=== PATIENT | male | born 1960 | race Caucasian/White ===

== ENCOUNTER 2025-01-24 19:40 | Emergency (ER) | payer BC, SELFPAY ==
[2025-01-24 19:47] VITALS: BP 165/91
[2025-01-24 20:04] LABS: % Eosinophils 6.6 % (0-6); % Immature Granulocytes 0.4 % (0-0.5); % Lymphocytes 16.7 % (20.5-51.1); % Monocytes 6.3 % (1.7-9.3); Absolute Basophils 0.1 10^3/uL (0-0.2); Absolute Eosinophils 0.7 10^3/uL (0-0.7); Absolute Lymphocytes 1.8 10^3/uL (1.2-3.4); Absolute Monocytes 0.7 10^3/uL (0.1-0.6); Absolute Neutrophils 7.4 10^3/uL (1.4-6.5); Hematocrit 41.5 % (39.0-52.0); Hemoglobin 14.1 g/dL (13.0-18.0); Mean Corpuscular Hgb 28.7 pg (27.0-31.0); Mean Corpuscular Volume 84.5 fL (80.0-94.0); Mean Platelet Volume 10.2 fL (7.4-10.4); Nucleated Red Blood Cells % 0 % (-); Platelet Count 175 10^3/uL (130-400); Red Blood Cell Count 4.91 10^6/uL (4.70-6.10); Red Cell Dist. Width 13.3 % (11.5-14.5); White Blood Cell Count 10.8 10^3/uL (4.8-10.8)
[2025-01-24 20:15] LABS: ALT (SGPT) 25 U/L (0-50); AST (SGOT) 31 U/L (17-59); Albumin 4.7 g/dl (3.5-5.0); Alkaline Phosphatase 59 U/L (38-126); Blood Urea Nitrogen 25 mg/dl (9-20); Calcium 10.4 mg/dl (8.4-10.2); Carbon Dioxide 26 mmol/L (22-30); Chloride 101 mmol/L (98-107); Glucose 120 mg/dl (70-99); Potassium 4.1 mmol/L (3.5-5.1); Sodium 137 mmol/L (135-145); Total Bilirubin 0.7 mg/dl (0.2-1.3); eGFR > 60.00
[2025-01-24 22:55] VITALS: BMI 28.7
[2025-01-24 23:01] VITALS: BP 150/77
[2025-01-25 00:01] LABS: Urine Albumin 1+ (Neg - Trace); Urine Bilirubin Negative (Negative); Urine Character Slightly Cloudy (Clear); Urine Color Yellow; Urine Glucose Negative (Negative); Urine Ketone Negative (Negative); Urine Leukocyte 1+ (Negative); Urine Nitrite Negative (Negative); Urine Occult Blood 4+ (Negative); Urine Urobilinogen Negative (Neg - 1+)
[2025-01-25 00:16] LABS: Urine Amorphous Seen; Urine Calcium Oxalate Crystals Seen; Urine Mucus Moderate; Urine Red Blood Cell >100 /HPF (0-2); Urine Squamous Cell >30 /LPF (Few)
[2025-01-25 00:17] LABS: Urine Bacteria Many (Negative)
--- NOTE | 2025-01-25 01:31 | ED.GENMED ---
History of Present Illness
General
Chief Complaint: Flank Pain
Source: patient and family
Exam Limitations: none
Time Seen by Provider: 01/24/25 23:38
Nursing documentation reviewed up to this point in time: agreed with
History of Present Illness
History of Present Illness:
Pleasant 65-year-old male presents to the emergency department with left-sided flank pain. He does have a history of kidney stones and states that this is similar but reports that the pain is in the lower abdomen. Denies fever, chills, nausea or
vomiting. Reports no chest pain or shortness of breath.
Past History
Past History
ED Past Medical History: GERD, Other (Kidney stones) and Other (Gout)
ED Past Surgical History: Other (Inguinal hernia)
Social History
Tobacco: Non-smoker
Alcohol: None
Drug: None
Personal:
Living: with family
Review of Systems
Review of Systems
Allergies reviewed?: Yes
All Other Systems: ROS reviewed and negative except as documented in HPI and ROS
Constitutional: Reports no symptoms
EENT: Reports no symptoms
Respiratory: Reports no symptoms
Cardiac: Reports no symptoms
ABD/GI: Reports abdominal pain
: Reports flank pain
Musculoskeletal: Reports no symptoms
Skin: Reports no symptoms
Neurological: Reports no symptoms
Endocrine: Reports no symptoms
Hematologic/Lymphatic: Reports no symptoms
Psychiatric: Reports anxiety
Phy Exam
General Physical Exam
General Presentation: well appearing and moderate distress
General Skin: warm and dry
General Habitus: normal
General Mental: alert
General Hydration: appears well hydrated
ENT Exam
ENT Exam: EOMI, pharynx normal, neck supple and normocephalic
Eye Exam
Eye Exam: PERRL, cornea clear and conjunctiva normal
Cardiovascular Exam
Cardiovascular Exam: regular rate/rhythm and no edema
Pulmonary Exam
Pulmonary Exam: lungs clear, no respiratory distress, no rales, no crackles, no rhonchi, no stridor, no wheezing and no cough
Gastrointestinal Exam
Gastrointestinal Exam: normal bowel sounds, non tender, soft, no organomegaly, no pulsatile mass and non distended
Neurological Exam
Neurological Exam: alert and oriented x3
Musculoskeletal Exam
Musculoskeletal Exam: full ROM
Skin Exam
Skin Exam: normal color, warm/dry, no rash and no petechia
Psychiatric Exam
Psychiatric Exam: normal mood/affect
Course
Orders/Labs/Results
Orders:
Orders
01/24/25 19:51
Complete Blood Count/With Diff Urgent
Comprehensive Metabolic Panel Urgent
01/24/25 23:53
Urinalysis Reflex To Culture Urgent
Date Specimen was Collected: 01/24/25
Time Specimen was Collected: 23:52
Urine Microscopic Reflex Cult Urgent
Urine Culture Urgent
APOLLO Source: U
Specimen Description:
Date Specimen was Collected: 01/24/25
Time Specimen was Collected: 23:52
01/25/25 00:20
CT Abd/pelvis W Iv Cont Urgent
Reason For Exam: llq pain,
01/25/25 01:30
Cephalexin Monohydrate [Keflex] 500 mg PO NOW STA
Tamsulosin [Flomax] 0.4 mg PO NOW STA
Abnormal Lab Results
01/24/25 01/24/25
19:51 23:53
Absolute Neuts (auto) 7.4 H 10^3/uL
(1.4-6.5)
Absolute Monos (auto) 0.7 H 10^3/uL
(0.1-0.6)
Lymphocytes % 16.7 L %
(20.5-51.1)
Eosinophils % 6.6 H %
(0-6)
BUN 25 H mg/dl
(9-20)
Glucose 120 H mg/dl
(70-99)
Calcium 10.4 H mg/dl
(8.4-10.2)
Ur Occult Blood Reflex 4+ A
(Negative)
Leukocyte Esterase Rfl 1+ A
(Negative)
Urine RBC >100 A /HPF
(0-2)
Urine WBC (Reflex) 11-15 A /HPF
(0-5)
Urine Bacteria (Reflex) Many A
(Negative)
Urine Albumin (Reflex) 1+ A
(Neg - Trace)
01/24/25 19:51
01/24/25 19:51
Vital Signs
Initial and Last Documented VS:
Initial Vital Signs
Temp Pulse Resp BP Pulse Ox
98.5 F 71 16 165/91 97
01/24/25 19:47 01/24/25 19:47 01/24/25 19:47 01/24/25 19:47 01/24/25 19:47
Last Documented Vital Signs
Temp Pulse Resp BP Pulse Ox
98.0 F 71 16 150/77 97
01/24/25 22:55 01/24/25 19:47 01/24/25 19:47 01/24/25 23:01 01/24/25 23:03
*Radiology
Radiology exam reviewed: radiology read reviewed
*Critical Care Note
Total Time (30-74mins, 75-104mins- exclusive of procedures): Not Applicable
Update Note
Update Note:
Patient has an obstructing kidney stone 4-5mm.
CT abdomen and pelvis with contrast
IMPRESSION:
4-5 mm obstructing left UPJ calculus
Mild hydronephrosis with mild to moderate perinephric stranding
Additional small nonobstructing left renal calculus
No other acute intra-abdominal pathology
Occasional colonic diverticula
Small sliding hiatal hernia
Atherosclerotic calcifications abdominal aorta and iliofemoral vessels
Previous bilateral inguinal herniorrhaphies
Degenerative changes in the spine, pelvis, and hips
ED Attending Note
-
Portions of this chart may have been created with voice recognition software.� Occasional wrong word or��sound alike� substitutions may have occurred due to the inherent limitations of voice recognition software.
Discharge Plan
Departure
Patient Disposition: Home (Routine Discharge)
Date of Disposition: 01/25/25
Time of Disposition: 01:34
Patient with high blood pressure during this ER visit?: Yes
Condition: Good
Discharge Problem:
Kidney stone on left side, Acute UTI
Instructions: Kidney Stones (DC), Flank Pain (DC), How to Strain Your Urine, BLOOD PRESSURE, Narcotic Pain Medication
Prescriptions:
New
tamsulosin [Flomax] 0.4 mg capsule
0.4 mg PO DAILY Qty: 7 0RF
oxycodone-acetaminophen [Percocet] 5-325 mg tablet
1 tab PO Q6HPRN PRN (Reason: pain) Qty: 10 0RF
diclofenac sodium 75 mg tablet,delayed release (DR/EC)
75 mg PO BID Qty: 10 0RF
cephalexin 500 mg capsule
500 mg PO BID 7 Days Qty: 14 0RF
No Action
Allopurinol
1 tab PO DAILY
losartan 50 MG tablet
50 mg PO DAILY
hydromorphone 2 MG tablet
2 mg PO Q4HPRN PRN (Reason: PAIN) Qty: 13 0RF
tamsulosin 0.4 MG capsule
0.4 mg PO DAILY Qty: 7 0RF
ondansetron 4 MG tablet,disintegrating
4 mg PO TIDPRN PRN (Reason: NAUSEA) Qty: 9 0RF
ciprofloxacin HCl [Cipro] 500 MG tablet
500 mg PO BID Qty: 14 0RF
hydrocodone-acetaminophen 1 TABLET tablet
1 tab PO Q4HPRN PRN (Reason: pain) Qty: 15 0RF
ibuprofen 600 MG tablet
600 mg PO Q6 Qty: 20 0RF
hydrocodone-acetaminophen 1 TABLET tablet
1 tab PO Q4HPRN PRN (Reason: Moderate to severe pain) Qty: 10 0RF
Referrals:
Osvaldo Rucker MD [Active] - As needed
NONE,* [Family Provider] -
Activity Restrictions/Additional Instructions:
Your prescriptions were sent to the pharmacy you requested.
It was a pleasure meeting you and taking part in your care. We hope for your continued healing and wellness.
Please read discharge instructions in their entirety. However, they are for general education and may not describe your exact diagnosis at discharge. Information on your ER visit and medical conditions were discussed with you along with appropriate
follow up information...
If indicated, please take your medications as instructed and indicated on discharge paperwork.
Please schedule a follow up appointment as directed. Call to schedule an appointment
Please return to the emergency department with ANY change in, persisting, or worsening of symptoms. If any of your symptoms do not improve, or persist, or become more severe within 6-12 hours, please return to the emergency department for further
care.
Please return to the emergency department if you develop a headache, neck pain/stiffness, fever greater than 100.4F, chest pain, shortness of breath, persistent nausea, vomiting, slurred speech, difficulty walking, numbness/tingling, weakness, signs
of infection or any other symptoms that are worrisome to you.
If you have any questions or concerns please do not hesitate to call the Hospital at or E-mail me directly at [email or web address]
Interventions
Interventions:
*Risk Screen - Suicide Last Done: 01/24/25 19:48
*General Assessment Last Done: 01/24/25 22:55
*Neglect/Abuse Screening Last Done: 01/24/25 19:48
ED- Fall Risk Assessment Last Done: 01/24/25 22:55
*ED COVID-19 Vaccine History Last Done: 01/24/25 22:55
*Nursing Disposition Last Done: 01/25/25 01:58
OO-Yawdpv-Xedyvwqdmr Assessment Last Done: 01/24/25 22:55
ED-Male Genitourinary Assessment Last Done: 01/24/25 22:55
Discharge Date and Time
Discharge Date/Time: 01/25/25 01:59
Print Language: ARABIC
[2025-01-25] MEDS: FLOMAX 0.4 MG PO (01:38)
[2025-01-25] MEDS: KEFLEX 500 MG PO (01:38)
== END 2025-01-25 01:59 | disposition home or self-care (01) ==
LOC: EMR 19:40
PROVIDERS: Student in an Organized Health Care Education/Training Program; EMERGENCY PHYSICIAN Student in an Organized Health Care Education/Training Program
DX: N13.2 Hydronephrosis with renal and ureteral calculous obstruction (principal); N39.0 Urinary tract infection, site not specified; K21.9 Gastro-esophageal reflux disease without esophagitis
CPT/HCPCS: 99284; 74177; 80053; 81003; 81015; 85025; 87086; Q9967

== ENCOUNTER 2025-02-08 06:19 | Day surgery (SDC) | payer BC, SELFPAY ==
[2025-02-08] VITALS (7 sets, daily range): BP systolic 107–147; BP diastolic 58–82; BMI 28.8
[2025-02-08] MEDS: NORMOSOL-R/PLASMALYTE-A 1000 IV (09:01)
[2025-02-08] MEDS: Pyridium 200 MG PO (11:41)
== END 2025-02-08 12:32 | disposition home or self-care (01) ==
LOC: SDS 06:19
PROVIDERS: ATTENDING PHYSICIAN Specialist
DX: N20.2 Calculus of kidney with calculus of ureter (principal)
CPT/HCPCS: 52356; 76000; 93005; C1894